=== PATIENT | male | born 1955 | race Caucasian/White ===

== ENCOUNTER 2018-08-31 04:23 | Emergency (ER) | payer MEDICAID ==
[~2018-08-31] VITALS: Ht 177.8 cm; Wt 90.7 kg
[~2018-08-31 04:23] MED LIST: ADVAIR 500-501 EACH; ALLERGY RELIEF10 M3; ALLOPURINOL 10100 M1 PO; ASPIR-TRIN325 MG; ASPIRIN; CLEOCIN HCL150 MG PO; COMBIVENT; DALIRESP500 MCG; FLONASE NS; IBUPROFEN 800800 M1 PO; LIPITOR40 MG PO; MELOXICAM7.5 MG PO; MUCINEX600 MG PO; NAPROSYN500 MG PO; NORCO 10-325 T1 EACH PO; PRILOSEC 20 MG20 MG PO; PRINZIDE 20-251 EACH PO; PROZAC 20 MG20 MG PO; TOPROL XL50 MG; ZANTAC 150MG T150 M1 PO
[2018-08-31] MEDS ORDERED: HYDROCODON-ACE1 EAC7 PO (05:02)
[2018-08-31] MEDS ORDERED: TORADOL 10 MG T10 MG PO (05:02)
[2018-08-31 05:16] VITALS: BP 152/85
== END 2018-08-31 05:16 | disposition home or self-care (01) ==
LOC: M.ERS 04:23
DX: M54.5 Low back pain (principal); J45.909 Unspecified asthma, uncomplicated; M10.9 Gout, unspecified; M19.90 Unspecified osteoarthritis, unspecified site; I10 Essential (primary) hypertension; F32.9 Major depressive disorder, single episode, unspecified; Z87.01 Personal history of pneumonia (recurrent); Z95.1 Presence of aortocoronary bypass graft